=== PATIENT | female | born 1990 | race Caucasian/White ===

== ENCOUNTER 2024-06-12 04:14 | Day surgery (SDC) | payer OTHER ==
[2024-06-11 11:00] VITALS: BMI 24.4
[2024-06-12] MEDS ORDERED: BACITRACIN ZINC 15 GM TUBE TOPICAL OINTMENT ONE (09:16)
[2024-06-12] MEDS ORDERED: LIDOCAINE 1%/EPI 1:100000 (20 ML MULTI DOSE VIAL) ONE (09:16)
[2024-06-12] MEDS ORDERED: DEXAMETHASONE SOD PHOSPHATE 4 MG/1 ML VIAL ONE (09:42)
[2024-06-12] MEDS ORDERED: LIDOCAINE HCL/PF 2% SDV 5ML VIAL ONE (09:42)
[2024-06-12] MEDS ORDERED: ONDANSETRON 4 MG/2 ML VIAL ONE (09:42)
[2024-06-12] MEDS ORDERED: PROPOFOL 20 ML ONE ×2 (09:47→10:20)
[2024-06-12] MEDS ORDERED: DEXMEDETOMIDINE HCL 200 MCG/2 ML IVPB ONE (09:48)
[2024-06-12] MEDS ORDERED: MIDAZOLAM HCL 2 MG/2 ML SINGLE DOSE VIAL ONE (09:56)
[2024-06-12] MEDS: ceFAZolin SODIUM 1 GM VIAL IVPB ONE (10:10)
[2024-06-12] MEDS ORDERED: HYDROmorphone HCl 2 MG/ML VIAL ONE (10:11)
[2024-06-12] MEDS ORDERED: SUGAMMADEX SODIUM 200 MG/2 ML VIAL ONE ×2 (10:11→11:20)
[2024-06-12] MEDS: OXYMETAZOLINE 0.05% NASAL SOLUTION 15 ML BOTTLE NS ONE (10:12)
[2024-06-12] MEDS ORDERED: ACETAMINOPHEN INJECTION 100 ML ONE (10:27)
[2024-06-12] MEDS: LIDOCAINE 1%/EPI 1:100000 (20 ML MULTI DOSE VIAL) IJ ONE (10:47)
[2024-06-12] MEDS: LACTATED RINGERS SOLUTION 1,000 ML IV SCH (11:30)
[2024-06-12] MEDS ORDERED: ONDANSETRON 4 MG/2 ML VIAL IVPUSH PRN ×2 (12:02→17:29)
[2024-06-12 13:29] VITALS: RESP 20; TEMP 97
[2024-06-12 15:26] VITALS: BP 125/80; PULSE 65
[2024-06-12] MEDS ORDERED: LACTATED RINGERS SOLUTION 1,000 ML IV SCH (17:30)
== END 2024-06-12 14:12 | disposition home or self-care (01) ==
LOC: JASU-SURG 04:14
PROVIDERS: ATTEND Otolaryngology
PROC: 099Q7ZZ Drainage of Right Maxillary Sinus, Via Natural or Artificial Opening (ICD-10-PCS; 2024-06-12)
PROC: 099R7ZZ Drainage of Left Maxillary Sinus, Via Natural or Artificial Opening (ICD-10-PCS; principal; 2024-06-12 09:30)
DX: J32.0 Chronic maxillary sinusitis (principal); R09.81 Nasal congestion; J34.3 Hypertrophy of nasal turbinates; J34.89 Other specified disorders of nose and nasal sinuses
CPT/HCPCS: 81025; 88304-TC; 94760; J0131